=== PATIENT | female | born 1945 | race Caucasian/White ===

== ENCOUNTER 2021-07-19 13:14 | Inpatient (IN) | payer OTHER ==
[~2021-07-19] VITALS: Ht 157.5 cm; Wt 72.6 kg
--- NOTE | 2021-07-19 13:14 | NUR ---
BROUGHT IN BY [facility] AND TRIAGED. PLACED IN BED #3, REPORT GIVEN TO SHASHANK
[2021-07-19 13:15] VITALS: BP_SYST 141
--- NOTE | 2021-07-19 14:00 | NUR ---
PT AAOX4 FROM HOME BIBA C/O N/V/D X2 DAYS. PER PATIENT SHE HAS BEEN FEELING WEAK AND STIFF TO KNEES. PT STATED SHE HAS BLADDER CA AND HAS BEEN HAVING INCREASED HEMATURIA. HAS NOT STARTED CHEMO/RADIATION YET.
--- NOTE | 2021-07-19 14:49 | NUR ---
XRAYS BEING DONE AT BEDSIDE.
--- NOTE | 2021-07-19 16:25 | NUR ---
MD URBINA AT BEDSIDE TO DRAW LABS FROM FEMORAL VEIN.
[2021-07-19 16:54] LABS: BASOPHILS % (AUTO) 0.1 % (0.0-2.0); LYMPHOCYTES # (AUTO) 1.4 K/uL (1.0-5.5); MEAN CORPUSCULAR HEMOGLOBIN 30 pg (27-31); MEAN CORPUSCULAR HGB CONC 33 % (32-36); MEAN CORPUSCULAR VOLUME 89 fL (79.0-98.0); MONOCYTES # (AUTO) 0.8 K/uL (0.0-1.0); MONOCYTES % (AUTO) 5.5 % (1.7-9.3); NEUTROPHILS # (AUTO) 13.2 K/uL (1.8-7.7); NEUTROPHILS % (AUTO) 85.4 % (40.0-70.0); PLATELET COUNT (AUTO) 299 K/uL (130-430); RED CELL DISTRIBUTION WIDTH 14.5 % (9.0-15.0); WHITE BLOOD COUNT (AUTO) 15.5 K/uL (4.8-10.8)
[2021-07-19 16:58] LABS: ANION GAP 9 (5-15); CALCIUM 7.4 mg/dL (8.4-11.0); CHLORIDE 103 mmol/L (98-107); CREATININE 1.73 mg/dL (0.55-1.30); GLUCOSE 139 mg/dL (70-99); POTASSIUM 4.3 mmol/L (3.5-5.1); SODIUM SERUM 137 mmol/L (136-145); UREA NITROGEN, BLOOD 22 mg/dL (8-21)
[2021-07-19 17:00] LABS: PROTHROMBIN TIME 10.6 SECS (9.5-12.5)
[2021-07-19 17:03] LABS: ALANINE AMINOTRANSFERASE 14 U/L (12-78); ALBUMIN 2.8 g/dL (3.4-4.8); AMYLASE 32 U/L (0-100); ASPARTATE AMINOTRANSFERASE 18 U/L (10-37); LIPASE 64 U/L (73-393); RED BLOOD CELL COUNT(AUTO) 1.78 MIL/uL (4.2-6.2); TOTAL BILIRUBIN 0.3 mg/dL (0.0-1.0)
[2021-07-19 17:11] LABS: HEMOGLOBIN 5.3 g/dL (12.0-16.0)
[2021-07-19 17:12] LABS: HEMATOCRIT 15.9 % (36-48)
--- NOTE | 2021-07-19 17:36 | NUR ---
MD URBINA AT BEDSIDE TO INSERT 18G RIGHT IJ. GOOD BLOOD RETURN NOTED. FLUSHES WITHOUT DIFFICULTIES.
--- NOTE | 2021-07-19 18:24 | NUR ---
Admit bed requested Patient will be admitted to care of Dr. MOLINA. Admitted to MED SURG unit. Diagnosis HEMATURIA Inpatient (Yes or No) YES Observation (Yes or No) NO Orientation concerns or request close to nursing station (Yes or No) NO Covid Status NEGATIVE On vent or bipap NO Isolation requirements NO Needs a sitter NO From Home (Yes or if No enter name of facility) YES Requires Dialysis (Yes or No) NO Med Rec Completed (Yes of No) YES
[2021-07-19] MEDS ORDERED: ONDANSETRON HCL 4 MG/2 ML VIAL IVP PRN ×2 (18:30→21:45)
--- NOTE | 2021-07-19 18:35 | NUR ---
Medication reconciliation completed with information provided by PATIENT. PATIENT DENIES TAKING ANY MEDICATION AT HOME.
--- NOTE | 2021-07-19 18:36 | NUR ---
Patient's code status is FULL CODE paperwork completed and placed in chart.
--- NOTE | 2021-07-19 18:53 | NUR ---
Transfer to MED SURG via GURNEY . IV present no signs or symptoms of infiltration.
--- NOTE | 2021-07-19 20:30 | NUR ---
BT INITIATION: Consent signed per PT agreeing to administration of blood. Blood has been type and crossmatched. Blood sent from blood bank. Information on unit of blood checked against patient wristband at bedside by two nurses. All information matches. Patient or responsible republican informed of potential complications associated with blood transfusion. Informed of possible transfusion reaction symptoms. Aware of need to notify nurse at once of itching, shortness of breath, flushing, feeling of impending doom, or other symptoms not previously present. Vital signs taken within 5 minutes prior to initiation of transfusion. RN will remain with patient for first 15 minutes of transfusion at which time vital signs will be re-assessed.
[2021-07-19 20:55] VITALS: BP_SYST 145
--- NOTE | 2021-07-19 21:00 | NUR ---
Bill Yan visits at bedside.
[2021-07-19] MEDS ORDERED: METH-797 PO (21:15)
[2021-07-19] MEDS ORDERED: SYNTHROID (21:16)
[2021-07-19] MEDS ORDERED: LORazepam 2 MG/ML VIAL IVP PRN (21:45)
[2021-07-19] MEDS ORDERED: NORMAL SALINE 5 ML DISP.SYRIN IVF SCH (22:00)
--- NOTE | 2021-07-19 22:30 | NUR ---
Rounds/Pericare Pt assisted to bedpan and pt voided bloody urine. Pt c/o burning pain while urinating. Pericare and linens changed. Kept right jugular IV intact. Call light within reach. To monitor.
[2021-07-19] MEDS: METHADONE HCL 10 MG TABLET PO SCH (22:37)
[2021-07-19] MEDS: NORMAL SALINE 5 ML DISP.SYRIN IVF SCH (22:37)
--- NOTE | 2021-07-19 23:00 | NUR ---
1st unit Blood transfusion completed Pt AAO, VSS BP 149/69 HR 89 Temp 98.2. No blood transfusion reaction noted.
--- NOTE | 2021-07-19 23:09 | NUR ---
CONSULT: CONSULT CALLED FOR DR. STAPLES I SPOKE WITH CONSTANCE MATA REASON FOR CONSULT: ANEMIA/BLADDER CANCER REQUESTING CONSULT: DR. TRACY Canas WHIZZER OPERATOR PHONE NUMBER: [phone]
[2021-07-19 23:10] VITALS: BP_SYST 149
--- NOTE | 2021-07-19 23:20 | NUR ---
Ativan Pt awake and anxious, moaning c/o pain R. jugular IV. Flushes well with 10cc NS, no swelling or redness noted. Placed ice pack per pt request. Medicated pt with Ativan 1mg IVP as needed. Call light within reach. Bed low, locked, siderails up x3, alarm on. To monitor.
--- NOTE | 2021-07-20 01:30 | NUR ---
2nd unit Blood transfusion started. Pt awake, VSS.
--- NOTE | 2021-07-20 04:30 | NUR ---
Blood transfusion/Pagechang ALTAMIRANO At 0350 CRN noticed IV R. neck external jugular had hematoma. Pt c/o pain. Blood trans stopped at 0350. ICU and ER nurse attempted to restart new IV on right arm only but unsuccessful. No lab draw or IV start on L. arm due to pt's L. mastectomy. Pt refused any more IV starts. Approximately 50-80ml blood unable to infuse. Paged Dr. Pereyra. Awaiting callback.
--- NOTE | 2021-07-20 04:37 | NUR ---
Paged Dr. Pereyra Donta
--- NOTE | 2021-07-20 04:45 | NUR ---
central lab technician at bedside for lab draw.
--- NOTE | 2021-07-20 04:51 | NUR ---
I'LL INFORM MORNING US TO CALLED DR. REYEZ CONSULT THIS NUMBER GOES STRAIGHT TO HIS HOME AND HE DO NOT WANT TO BE CALL UNLESS IS STAT CONSULTATION
--- NOTE | 2021-07-20 05:42 | NUR ---
Second Paged for Donta Ng
--- NOTE | 2021-07-20 05:45 | NUR ---
Closing notes/spoke w/ Received callback from Dr. Pereyra and informed of 2nd unit Blood transfusion not completed due to failed IV on right jugular. Received order for PICC line. Pt has hemituria with one blood clot noted during the shift. Call light within reach. Bed low, locked, siderails up x3, alarm on. To endorse to AM nurse.
[2021-07-20] MEDS: NORMAL SALINE 5 ML DISP.SYRIN IVF SCH ×3 (06:00→23:16)
[2021-07-20 06:41] LABS: ANION GAP 11 (5-15); CALCIUM 7.8 mg/dL (8.4-11.0); CHLORIDE 103 mmol/L (98-107); CREATININE 1.94 mg/dL (0.55-1.30); GLUCOSE 133 mg/dL (70-99); POTASSIUM 4.1 mmol/L (3.5-5.1); SODIUM SERUM 136 mmol/L (136-145); UREA NITROGEN, BLOOD 27 mg/dL (8-21)
--- NOTE | 2021-07-20 07:30 | NUR ---
MORNING ROUNDS: PATIENT FAST ASLEEP DURING ROUNDS. IV RIGHT EXTERNAL IJ,REDNESS ON THE SITE,LOCK. O2 2L/NC,GOOD SATURATION. CALL LIGHT WITH IN REACH. BED LOCKED AT LOWEST POSITION. CONTINUE TO MONITOR FOR NAY ACTIVE BLEEDING.
--- NOTE | 2021-07-20 07:34 | NUR ---
CONSULTATION PAGED/CALLED Reason for Consultation: [] HEMATURIA Person Who was Notified: [] LEFT A VOICE MESSAGE INSTRUCTED Consulting Physician: [] DR Grace REYEZ Social Service Technician Specialty: [] UROLOGY Ordering Physician: [] DR MOLINA
[2021-07-20 08:02] VITALS: BP_SYST 118; BP_SYST 147
[2021-07-20] MEDS: METHADONE HCL 10 MG TABLET PO SCH (09:00)
[2021-07-20 09:44] LABS: BASOPHILS % (AUTO) 0.2 % (0.0-2.0); LYMPHOCYTES # (AUTO) 1.6 K/uL (1.0-5.5); MEAN CORPUSCULAR HEMOGLOBIN 31 pg (27-31); MEAN CORPUSCULAR HGB CONC 34 % (32-36); MEAN CORPUSCULAR VOLUME 91 fL (79.0-98.0); MONOCYTES # (AUTO) 1.6 K/uL (0.0-1.0); NEUTROPHILS # (AUTO) 14.3 K/uL (1.8-7.7); NEUTROPHILS % (AUTO) 81.8 % (40.0-70.0); PLATELET COUNT (AUTO) 252 K/uL (130-430); RED BLOOD CELL COUNT(AUTO) 2.13 MIL/uL (4.2-6.2); RED CELL DISTRIBUTION WIDTH 14.5 % (9.0-15.0); WHITE BLOOD COUNT (AUTO) 17.5 K/uL (4.8-10.8)
[2021-07-20] MEDS ORDERED: METHADONE HCL 10 MG TABLET PO ONE (09:45)
[2021-07-20 10:53] LABS: HEMATOCRIT 19.5 % (36-48); HEMOGLOBIN 6.5 g/dL (12.0-16.0)
--- NOTE | 2021-07-20 11:17 | NUR ---
ONCO/MICHAELA MD DR STAPLES ORDERED RECORDS FROM DR GRANT'S OFFICE RE: BLADDER CA. SPOKE TO DOROTHY WHO WILL FAX IT TO US.
--- NOTE | 2021-07-20 11:26 | NUR ---
UROLOGY CONSULT WITH DR REYEZ WAS CANCELLED. SPOKE TO YOHANA.
--- NOTE | 2021-07-20 11:27 | NUR ---
CONSULTATION PAGED/CALLED Reason for Consultation: [] ACUTE KIDNEY INJURY Person Who was Notified: [] DR SOLORZANO Consulting Physician: [] DR SOLORZANO Sheet Rock Nailer Specialty: [] NEPHRO Ordering Physician: [] DR MOLINA
--- NOTE | 2021-07-20 11:29 | NUR ---
UROLOGY CONSULT WAS CALLED TO THE OFFICE OF DR IGNACIO FRANCO. SPOKE TO DELIA WHO GAVE ME HIS PAGER NUMBER [phone].
--- NOTE | 2021-07-20 11:33 | NUR ---
CONSULTATION PAGED/CALLED Reason for Consultation: [] HEMATURIA Person Who was Notified: [] DELIA, PROVIDED THE PAGER # AND I PAGED Consulting Physician: [] DR IGNACIO FRANCO Flag Football Coach Specialty: [] UROLOGY Ordering Physician: [] DR MOLINA
--- NOTE | 2021-07-20 11:35 | NUR ---
CONSULTATION PAGED/CALLED Reason for Consultation: [] LEUKOCYTOSIS Person Who was Notified: [] VICTORIA Consulting Physician: [] DR ANGELY WHITESIDE Billboard Poster Specialty: [] ID Ordering Physician: [] DR MOLINA
[2021-07-20 11:38] VITALS: BP_SYST 134
[2021-07-20 11:54] LABS: PROTHROMBIN TIME 10.6 SECS (9.5-12.5)
--- NOTE | 2021-07-20 12:00 | NUR ---
CONSENT FOR PICC LINE PLACEMENT: PATIENT FINALLY AGREED TO HAVE A PICC LINE PLACEMENT AFTER TALKING TO DR Floresita MOLINA AND SON SIGNED THE CONSENT PER PATIENT.
--- NOTE | 2021-07-20 13:24 | NUR ---
MADE ANOTHER ATTEMPT TO REACH DR Itzel FRANCO, UROLOGIST. SPOKE TO [facility]. REPAGED DR FRANCO AGAIN.
--- NOTE | 2021-07-20 13:40 | NUR ---
URO CALLED BACK: SPOKE WITH DR FRANCO AND HE WILL SEE PATIENT LATER.
[2021-07-20 15:29] VITALS: BP_SYST 144
--- NOTE | 2021-07-20 15:56 | NUR ---
REFUSED JUÁREZ INSERTION: PATIENT REFUSED JUÁREZ INSERTION.
--- NOTE | 2021-07-20 19:00 | NUR ---
EVENING ROUNDS: BED CONTROL CALLED PICC LINE NURSE 2X WITH DIFFERENT [employer].WAITING FOR PICC LINE NURSE TO COME. CALL LIGHT WITH IN REACH. BED LOCKED AT LOWEST POSITION. RIGHT IJ LOCK.PER PATIENT PAIN AT THE SITE,NOT IN USED. CONTINUE TO MONITOR FOR ACTIVE BLEEDING.
[2021-07-20] MEDS ORDERED: LORazepam 1 MG TABLET PO ONE (19:45)
--- NOTE | 2021-07-20 19:45 | NUR ---
HIGH ALERT NOTE: Called Dr. Russell back at his identified within the medical roster to verify physician authenticity.
[2021-07-20 20:30] VITALS: BP_SYST 122
--- NOTE | 2021-07-20 20:30 | NUR ---
New midline placed to right upper arm, ok to use per PICC nurse.
[2021-07-20] MEDS: cefTRIAXone 1 GM IVPB PREMIX 50 ML IV SCH (23:16)
[2021-07-20] MEDS: D5/0.45 NS 1,000 ML IV SCH ×2 (23:16→23:23)
[2021-07-21 00:58] VITALS: BP_SYST 121
--- NOTE | 2021-07-21 02:15 | NUR ---
BT INITIATION: Consent signed per RN agreeing to administration of blood. Blood has been type and crossmatched. Blood sent from blood bank. Information on unit of blood checked against patient wristband at bedside by two nurses. All information matches. Patient or responsible alliance party informed of potential complications associated with blood transfusion. Informed of possible transfusion reaction symptoms. Aware of need to notify nurse at once of itching, shortness of breath, flushing, feeling of impending doom, or other symptoms not previously present. Vital signs taken within 15 minutes prior to initiation of transfusion. RN will remain with patient for first 15 minutes of transfusion at which time vital signs will be re-assessed.
[2021-07-21 02:23] LABS: BILIRUBIN,URINE NEGATIVE (NEGATIVE); BLOOD, URINE 3+ (NEGATIVE); CLARITY/URINE CLEAR (CLEAR); COLOR,URINE YELLOW (YELLOW); GLUCOSE,URINE NEGATIVE (NEGATIVE); KETONES,URINE NEGATIVE (NEGATIVE); LEUKOCYTE ESTERASE ,URINE 3+ (NEGATIVE); NITRITE, URINE POSITIVE (NEGATIVE); PROTEIN URINE 2+ (NEGATIVE); UROBILINOGEN,URINE 0.2 (0.2-1.0)
[2021-07-21 02:32] LABS: WBC,URINE >100 /HPF (0-3)
[2021-07-21 02:33] LABS: BACTERIA,URINE FEW /HPF (None Seen)
[2021-07-21] MEDS: NORMAL SALINE 5 ML DISP.SYRIN IVF SCH ×3 (05:50→21:30)
[2021-07-21] MEDS: D5/0.45 NS 1,000 ML IV SCH ×3 (05:50→23:35)
--- NOTE | 2021-07-21 07:15 | NUR ---
OPENING NOTE RECEIVED SBAR FROM NIGHT RN, PATIENT IN BED, RESPIRATIONS EVEN NON LABORED, BED IN LOW AND LOCKED POSITION, CALL LIGHT WITHIN REACH, BED ALARM ON
[2021-07-21 07:31] LABS: BASOPHILS % (AUTO) 0.2 % (0.0-2.0); EOSINOPHILS % (AUTO) 0.3 % (0.0-4.0); LYMPHOCYTES # (AUTO) 1.5 K/uL (1.0-5.5); LYMPHOCYTES % (AUTO) 14.7 % (20.5-51.5); MEAN CORPUSCULAR HEMOGLOBIN 32 pg (27-31); MEAN CORPUSCULAR HGB CONC 36 % (32-36); MEAN CORPUSCULAR VOLUME 90 fL (79.0-98.0); MONOCYTES # (AUTO) 0.9 K/uL (0.0-1.0); MONOCYTES % (AUTO) 9.2 % (1.7-9.3); NEUTROPHILS # (AUTO) 7.7 K/uL (1.8-7.7); NEUTROPHILS % (AUTO) 75.6 % (40.0-70.0); PLATELET COUNT (AUTO) 173 K/uL (130-430); RED BLOOD CELL COUNT(AUTO) 2.18 MIL/uL (4.2-6.2); RED CELL DISTRIBUTION WIDTH 14.1 % (9.0-15.0); RETICULOCYTE COUNT 6.1 % (0.5-1.5); WHITE BLOOD COUNT (AUTO) 10.2 K/uL (4.8-10.8)
[2021-07-21 07:53] LABS: TOTAL IRON BIND. CAPACITY 225 ug/dL (250-450)
--- NOTE | 2021-07-21 07:53 | NUR ---
Closing Patient AOx4, resting in bed, no sign of distress noted. Midline to right upper arm placed last night, patent with IV fluids infusing per order. 1 unit PRBCs given, no reaction noted, patient tolerated well. IV to right EJ removed, no signs of bleeding. Dr. Simons spoke with patient and son Yuriy. No bladder scanner available for post void residual, but patient had approx. 700mL yellow slightly cloudy urine output using bedpan. No blood or clots in urine noted. Sample for urinalysis sent to lab. Call light in reach, fall and safety precautions maintained.
[2021-07-21 07:54] LABS: ALANINE AMINOTRANSFERASE 17 U/L (12-78); ALBUMIN 2.3 g/dL (3.4-4.8); ANION GAP 7 (5-15); ASPARTATE AMINOTRANSFERASE 21 U/L (10-37); CHLORIDE 105 mmol/L (98-107); CREATININE 1.55 mg/dL (0.55-1.30); GLUCOSE 115 mg/dL (70-99); PHOSPHORUS 3.6 mg/dL (2.7-4.5); POTASSIUM 3.8 mmol/L (3.5-5.1); SODIUM SERUM 137 mmol/L (136-145); TOTAL BILIRUBIN 0.2 mg/dL (0.0-1.0); UREA NITROGEN, BLOOD 26 mg/dL (8-21)
[2021-07-21 08:00] VITALS: BP_SYST 144
[2021-07-21 08:15] LABS: HEMATOCRIT 19.6 % (36-48)
[2021-07-21 08:28] LABS: CALCIUM 6.8 mg/dL (8.4-11.0)
[2021-07-21] MEDS: METHADONE HCL 10 MG TABLET PO SCH ×2 (08:28→09:33)
--- NOTE | 2021-07-21 08:34 | NUR ---
methadone waste droppedm medication on the floor wasted with second RN witness
[2021-07-21] MEDS ORDERED: METHADONE HCL 10 MG TABLET PO ONE (08:45)
[2021-07-21] MEDS ORDERED: ceFAZolin SODIUM 1 GM in D5W 50 ML IV SCH (09:15)
--- NOTE | 2021-07-21 09:44 | NUR ---
critical lab informed Dr. Pereyra of Hemoglobin 7.0, Hematocrit 19.6 and calcium 6.8. Per do not transfuse unless Hemoglobin is 6.9 or below, new order received for calcium
[2021-07-21] MEDS: CALCIUM CARBONATE 500 MG/ TAB.CHEW PO SCH ×2 (10:00→21:28)
[2021-07-21] MEDS: cefTRIAXone 1 GM IVPB PREMIX 50 ML IV SCH (10:42)
[2021-07-21] MEDS ORDERED: CALCIUM CARBONATE 500 MG/ TAB.CHEW PO ONE (11:00)
[2021-07-21 12:53] VITALS: BP_SYST 122
[2021-07-21] MEDS ORDERED: CALCIUM GLUCONATE 2 GM in NS 100 ML IV ONE (13:00)
--- NOTE | 2021-07-21 13:52 | NUR ---
SCD APPLIED SCD TO BILAT LEGS, EDUCATED PATIENT REGARDING THE NEED FOR SCD, ANSWERED ALL QUESTIONS, PATIENT VERBALIZED UNDERSTANDING.
[2021-07-21 16:32] VITALS: BP_SYST 121
--- NOTE | 2021-07-21 17:54 | NUR ---
Dietitian Recommendations * Regular, gluten-free diet, Ensure Enlive BID (ONS yields 700 kcal/day, 40 gm protein/day) * Encourage increase PO intakes LP, RD Please refer to Nutrition Assessment for details. Addendum: 07/21/21 at [address] Amended: Links added.
--- NOTE | 2021-07-21 19:09 | NUR ---
CLOSING NOTE PROVIDED SBAR TO NIGHT RN, PATIENT IN BED RESPIRATIONS EVEN, NON LABORED, BED IN LOW AND LOCKED POSITION CALL LIGHT WITHIN REACH, BED ALARM ON, ENDORSED STOOL SAMPLE FOR OCCULT BLOOD. ENDORSED CARE TO NIGHT RN
[2021-07-21 20:00] VITALS: BP_SYST 150
[2021-07-22 00:40] VITALS: BP_SYST 134
[2021-07-22] MEDS: NORMAL SALINE 5 ML DISP.SYRIN IVF SCH ×3 (06:06→20:59)
--- NOTE | 2021-07-22 06:51 | NUR ---
Closing Patient AOx4, no sign of distress noted. O2 sat 95-98% on room air when NC slipped off, patient preferred to keep NC at bedside for comfort. No complaint of pain or nausea. Patient voiding well with bedpan. Urine yellow and slightly cloudy, no blood or clots noted. No bowel movement. IV fluids infusing as ordered. Repositioned with pillow when patient agreeable to it, otherwise patient was encouraged to turn in bed often. Patient able to turn from side to side in bed. Call light in reach, fall and safety precautions maintained.
[2021-07-22 07:26] LABS: MEAN CORPUSCULAR HEMOGLOBIN 31 pg (27-31); MEAN CORPUSCULAR HGB CONC 35 % (32-36); MEAN CORPUSCULAR VOLUME 91 fL (79.0-98.0); PLATELET COUNT (AUTO) 164 K/uL (130-430); RED BLOOD CELL COUNT(AUTO) 2.21 MIL/uL (4.2-6.2); RED CELL DISTRIBUTION WIDTH 14.5 % (9.0-15.0); WHITE BLOOD COUNT (AUTO) 8.4 K/uL (4.8-10.8)
--- NOTE | 2021-07-22 07:30 | NUR ---
RECEIVED PT FROM NOC SHIFT RN. PT IS AAOX4. NSR. RESP EVEN AND UNLABORED. O2 N/C AT 2LPM. NO COUGH OR SOB NOTED. ABDOMEN SOFT, NONTENDER, NONDISTENDED. BOWEL SOUNDS ACTIVE X4. PT CONTINENT BOWEL AND BLADDER. COLTON IV CATH MIDLINE PATENT, 3 LUMENS FLUSHED AND PATENT. SITE WNL. DRESSING CDI. PT DENIES PAIN. SKIN CDI, NO EDEMA, DISTAL PULSES NORMAL. CALL LIGHT WITHIN REACH. FALL PROTOCOL IN PLACE.
[2021-07-22 07:49] LABS: ALANINE AMINOTRANSFERASE 14 U/L (12-78); ALBUMIN 2.2 g/dL (3.4-4.8); ANION GAP 7 (5-15); ASPARTATE AMINOTRANSFERASE 24 U/L (10-37); C-REACTIVE PROTEIN QUANT 4.1 mg/dL (0-0.5); CALCIUM 7.2 mg/dL (8.4-11.0); CHLORIDE 106 mmol/L (98-107); CREATININE 1.45 mg/dL (0.55-1.30); GLUCOSE 111 mg/dL (70-99); PHOSPHORUS 3.5 mg/dL (2.7-4.5); POTASSIUM 3.8 mmol/L (3.5-5.1); SODIUM SERUM 137 mmol/L (136-145); TOTAL BILIRUBIN 0.3 mg/dL (0.0-1.0); UREA NITROGEN, BLOOD 20 mg/dL (8-21)
[2021-07-22 08:07] LABS: FOLATE (FOLIC ACID) 3.6 ng/mL (>3.0)
[2021-07-22 08:11] LABS: HEMATOCRIT 20.1 % (36-48); HEMOGLOBIN 6.9 g/dL (12.0-16.0)
--- NOTE | 2021-07-22 08:20 | NUR ---
PAGED DR. MOLINA TO REPORT CRITICAL HGB, AWAITING CALL BACK.
[2021-07-22 08:46] VITALS: BP_SYST 148
[2021-07-22 09:13] LABS: BAND % (MANUAL) 0 % (0-6); BASOPHILS % (MANUAL) 0 % (0-2); EOSINOPHILS % (MANUAL) 2 % (0-7); LYMPHOCYTES % (MANUAL) 15 % (20-46); METAMYELOCYTES % 1 % (0-0); MONOCYTES % (MANUAL) 7 % (0-11)
[2021-07-22 09:44] LABS: ERYTHROCYTE SEDIMENTATION RATE 23 MM/HR (0-20)
[2021-07-22] MEDS: CALCIUM CARBONATE 500 MG/ TAB.CHEW PO SCH ×2 (09:48→20:58)
[2021-07-22] MEDS: METHADONE HCL 10 MG TABLET PO SCH (09:49)
--- NOTE | 2021-07-22 10:05 | NUR ---
REPORTED TO DR. MOLINA THAT PT HGB 6.9, HCT 20.1, RECEIVED ORDER TO TRANSFUSE ONE UNIT PRBC. ORDER CARRIED OUT. PT MADE AWARE.
[2021-07-22] MEDS: D5/0.45 NS 1,000 ML IV SCH (10:17)
[2021-07-22] MEDS: cefTRIAXone 1 GM IVPB PREMIX 50 ML IV SCH (10:26)
[2021-07-22 11:33] VITALS: BP_SYST 152
[2021-07-22] MEDS ORDERED: CALCIUM GLUCONATE 2 GM in NS 100 ML IV ONE (13:00)
--- NOTE | 2021-07-22 13:30 | NUR ---
ONE UNIT PRBC INITIATED. PT EDUCATED TO REPORT S/S OF TRANSFUSION RX. PT VERBALIZED UNDERSTANDING.
[2021-07-22 15:39] VITALS: BP_SYST 129
--- NOTE | 2021-07-22 16:50 | NUR ---
ONE UNIT PRBC COMPLETED. VS WNL. PT DENIES S/S OF TRANSFUSION RX.
[2021-07-22] MEDS: SOD FERRIC GLUC COMPLEX/SUC 125 MG in NS 100 ML IV SCH (17:47)
--- NOTE | 2021-07-22 19:34 | NUR ---
ENDORSED ALL CARE TO MAREK MAHER. ALL QUESTIONS AND CONCERNS ADDRESSED.
[2021-07-22 20:00] VITALS: BP_SYST 134
[2021-07-22] MEDS: DOCUSATE SODIUM 100 MG CAPSULE PO SCH (20:59)
[2021-07-23 00:01] VITALS: BP_SYST 145
--- NOTE | 2021-07-23 04:39 | NUR ---
PT HAD A BOWEL MOVEMENT, I COLLECTED THE STOOL SAMPLE FOR OCCULT BLOOD AND TURNED IT INTO LAB.
[2021-07-23] MEDS: NORMAL SALINE 5 ML DISP.SYRIN IVF SCH ×3 (05:10→21:48)
[2021-07-23 07:27] LABS: BASOPHILS % (AUTO) 0.4 % (0.0-2.0); EOSINOPHILS # (AUTO) 0.3 K/uL (0.0-0.4); EOSINOPHILS % (AUTO) 3.8 % (0.0-4.0); HEMATOCRIT 24.8 % (36-48); HEMOGLOBIN 8.7 g/dL (12.0-16.0); LYMPHOCYTES # (AUTO) 1.2 K/uL (1.0-5.5); LYMPHOCYTES % (AUTO) 15.3 % (20.5-51.5); MEAN CORPUSCULAR HEMOGLOBIN 31 pg (27-31); MEAN CORPUSCULAR HGB CONC 35 % (32-36); MEAN CORPUSCULAR VOLUME 88 fL (79.0-98.0); MONOCYTES # (AUTO) 0.9 K/uL (0.0-1.0); MONOCYTES % (AUTO) 11.7 % (1.7-9.3); NEUTROPHILS # (AUTO) 5.5 K/uL (1.8-7.7); NEUTROPHILS % (AUTO) 68.8 % (40.0-70.0); PLATELET COUNT (AUTO) 187 K/uL (130-430); RED BLOOD CELL COUNT(AUTO) 2.81 MIL/uL (4.2-6.2); RED CELL DISTRIBUTION WIDTH 14.8 % (9.0-15.0); WHITE BLOOD COUNT (AUTO) 7.9 K/uL (4.8-10.8)
--- NOTE | 2021-07-23 07:41 | NUR ---
RECEIVED PT FROM MAREK MAHER. PT IS AAOX4. RESP E/U, SHALLOW BILATERALLY, ON R/A. NO COUGH OR SOB. PT IN NSR. ABDOMEN SOFT, ROUND, NONTENDER, NONDISTENDED. BOWEL SOUNDS ACTIVE X4. DENIES N/V/D/C. PT HAS C/O PERIODS OF BLADDER INCONTINENCE, NO HEMATURIA NOTED AT THIS TIME. DISTAL PULSES NORMAL, NO EDEMA, SKIN CDI. MIDLINE TO COLTON 2 LUMENS PATENT WITH D5 1/2 RUNNING AT 10OML/HOUR. SITE WNL, CDI. DENIES PAIN. CALL LIGHT WITHIN REACH.
[2021-07-23 07:59] LABS: ALANINE AMINOTRANSFERASE 14 U/L (12-78); ALBUMIN 2.2 g/dL (3.4-4.8); ANION GAP 6 (5-15); ASPARTATE AMINOTRANSFERASE 18 U/L (10-37); C-REACTIVE PROTEIN QUANT 2.8 mg/dL (0-0.5); CALCIUM 7.6 mg/dL (8.4-11.0); CHLORIDE 108 mmol/L (98-107); CREATININE 1.35 mg/dL (0.55-1.30); GLUCOSE 98 mg/dL (70-99); PHOSPHORUS 4.3 mg/dL (2.7-4.5); SODIUM SERUM 139 mmol/L (136-145); TOTAL BILIRUBIN 0.4 mg/dL (0.0-1.0); UREA NITROGEN, BLOOD 15 mg/dL (8-21)
[2021-07-23] MEDS: CALCIUM CARBONATE 500 MG/ TAB.CHEW PO SCH ×2 (08:16→21:47)
[2021-07-23] MEDS: DOCUSATE SODIUM 100 MG CAPSULE PO SCH ×2 (08:16→21:47)
[2021-07-23] MEDS: METHADONE HCL 10 MG TABLET PO SCH (08:16)
[2021-07-23] MEDS: D5/0.45 NS 1,000 ML IV SCH (08:16)
--- NOTE | 2021-07-23 08:30 | NUR ---
PT HAD LOOSE BM WITH INCONTINENCE OF BOWEL AND BLADDER. COLACE HELD. PT DENIES PAIN. NO HEMATURIA NOTED. CALL LIGHT WITHIN REACH.
[2021-07-23 08:31] VITALS: BP_SYST 133
[2021-07-23 10:15] LABS: ERYTHROCYTE SEDIMENTATION RATE 16 MM/HR (0-20)
[2021-07-23] MEDS: cefTRIAXone 1 GM IVPB PREMIX 50 ML IV SCH (11:20)
[2021-07-23 11:32] VITALS: BP_SYST 137
--- NOTE | 2021-07-23 12:00 | NUR ---
DR. MOLINA MET WITH AND ASSESSED PT. PT WILL STAY ONE MORE MIDNIGHT, LIKELY TO DISCHARGE TOMORROW. PT AGREED WITH POC.
--- NOTE | 2021-07-23 14:00 | NUR ---
PT RESTING COMFORTABLY IN BED. RESP E/U. PT TAUGHT TO TURN AND REPOSITION IN BED. PT DEMONSTRATED UNDERSTANDING. DENIES PAIN. CALL LIGHT WITHIN REACH.
[2021-07-23 15:36] VITALS: BP_SYST 144
[2021-07-23] MEDS: SOD FERRIC GLUC COMPLEX/SUC 125 MG in NS 100 ML IV SCH (16:51)
--- NOTE | 2021-07-23 16:51 | NUR ---
IV FERRICIT INITIATED. PT ASSISTED IN TURNING AND REPOSITIONING IN BED. DENIES PAIN. CALL LIGHT WITHIN REACH.
--- NOTE | 2021-07-23 19:56 | NUR ---
ENDORSED ALL CARE TO MAREK DEL ROSARIO. ALL QUESTIONS AND CONCERNS ADDRESSED.
[2021-07-24 00:42] VITALS: BP_SYST 148
[2021-07-24] MEDS: NORMAL SALINE 5 ML DISP.SYRIN IVF SCH ×3 (06:05→20:58)
[2021-07-24 08:00] VITALS: BP_SYST 177
[2021-07-24] MEDS: METHADONE HCL 10 MG TABLET PO SCH (08:40)
[2021-07-24] MEDS: CALCIUM CARBONATE 500 MG/ TAB.CHEW PO SCH ×2 (08:40→20:58)
[2021-07-24] MEDS: DOCUSATE SODIUM 100 MG CAPSULE PO SCH ×2 (08:40→20:58)
[2021-07-24] MEDS ORDERED: FERR-69 PO (08:43)
[2021-07-24 09:28] LABS: BASOPHILS % (AUTO) 0.3 % (0.0-2.0); EOSINOPHILS # (AUTO) 0.3 K/uL (0.0-0.4); EOSINOPHILS % (AUTO) 2.5 % (0.0-4.0); HEMATOCRIT 28.7 % (36-48); HEMOGLOBIN 9.7 g/dL (12.0-16.0); LYMPHOCYTES % (AUTO) 8.5 % (20.5-51.5); MEAN CORPUSCULAR HEMOGLOBIN 30 pg (27-31); MEAN CORPUSCULAR HGB CONC 34 % (32-36); MEAN CORPUSCULAR VOLUME 90 fL (79.0-98.0); MONOCYTES # (AUTO) 1.5 K/uL (0.0-1.0); MONOCYTES % (AUTO) 12.3 % (1.7-9.3); NEUTROPHILS % (AUTO) 76.4 % (40.0-70.0); PLATELET COUNT (AUTO) 164 K/uL (130-430); RED BLOOD CELL COUNT(AUTO) 3.21 MIL/uL (4.2-6.2); WHITE BLOOD COUNT (AUTO) 11.9 K/uL (4.8-10.8)
[2021-07-24 09:44] LABS: ALANINE AMINOTRANSFERASE 21 U/L (12-78); ALBUMIN 2.6 g/dL (3.4-4.8); ANION GAP 9 (5-15); ASPARTATE AMINOTRANSFERASE 26 U/L (10-37); CALCIUM 7.6 mg/dL (8.4-11.0); CHLORIDE 103 mmol/L (98-107); CREATININE 1.47 mg/dL (0.55-1.30); GLUCOSE 101 mg/dL (70-99); PHOSPHORUS 3.8 mg/dL (2.7-4.5); POTASSIUM 4.4 mmol/L (3.5-5.1); SODIUM SERUM 137 mmol/L (136-145); TOTAL BILIRUBIN 0.5 mg/dL (0.0-1.0); UREA NITROGEN, BLOOD 17 mg/dL (8-21)
[2021-07-24 10:28] LABS: ERYTHROCYTE SEDIMENTATION RATE 25 MM/HR (0-20)
[2021-07-24 11:30] VITALS: BP_SYST 166
[2021-07-24 16:25] VITALS: BP_SYST 139
--- NOTE | 2021-07-24 18:55 | NUR ---
PT'S MIDLINE INFILTRATED. IV MEDICATIONS ORDERED. DR. RAO PAGED. AWAITING CALL BACK.
--- NOTE | 2021-07-24 19:30 | NUR ---
OPENING NOTES: Patient received from AM shift. Patient is in bed resting no s/s of distress is noted at this time. Patient denies any pain or discomfort at this time. AM shift reported that patient MIDLINE had infiltrated. Dr. Atkins was here and placed gave order to insert new line for IV abx continuation post discharge. Order noted and will be carried out. Chest rise is even and unlabored on RA. Normal heart sounds on medsurg monitoring. Patient reports some generalized body ache 3/10, does note request anything for pain at this time. Denies ABD pain at this time with palpation Active BS x4 on auscultation. Will resume care and monitor throughout the shift.
[2021-07-24 20:00] VITALS: BP_SYST 134
--- NOTE | 2021-07-24 21:30 | NUR ---
PICC LINE NURSE was at bedside and patient refused the insertion of the new midline. Risk and benefits were explained to the patient, verbalized understanding and requested for PO medications instead and asked if the insertion could wait till AM shift. MD is aware of patient refusal for new line.
[2021-07-25 01:15] VITALS: BP_SYST 139
--- NOTE | 2021-07-25 06:18 | NUR ---
CLOSING NOTES: Patient is in bed resting no s/s of distress is noted at this time. Chest rise is even and unlabored. All current shift needs have been met at this time and patient is currently stable at this time. Safety protocols are in place and patient is able to verbalize needs with call light within reach. Will differ current care to AM shift for continuity of care.
[2021-07-25 06:50] LABS: BASOPHILS % (AUTO) 0.1 % (0.0-2.0); EOSINOPHILS # (AUTO) 0.1 K/uL (0.0-0.4); EOSINOPHILS % (AUTO) 0.5 % (0.0-4.0); HEMATOCRIT 26.1 % (36-48); LYMPHOCYTES # (AUTO) 1.1 K/uL (1.0-5.5); LYMPHOCYTES % (AUTO) 8.5 % (20.5-51.5); MEAN CORPUSCULAR HEMOGLOBIN 30 pg (27-31); MEAN CORPUSCULAR HGB CONC 35 % (32-36); MEAN CORPUSCULAR VOLUME 88 fL (79.0-98.0); MONOCYTES # (AUTO) 1.8 K/uL (0.0-1.0); MONOCYTES % (AUTO) 13.7 % (1.7-9.3); NEUTROPHILS % (AUTO) 77.2 % (40.0-70.0); PLATELET COUNT (AUTO) 220 K/uL (130-430); RED BLOOD CELL COUNT(AUTO) 2.98 MIL/uL (4.2-6.2); RED CELL DISTRIBUTION WIDTH 14.8 % (9.0-15.0)
[2021-07-25] MEDS ORDERED: SULF1TAB47 PO (07:13)
--- NOTE | 2021-07-25 08:00 | NUR ---
AM NOTES PT STABLE NOT IN ACUTE DISTRESS. VITALS STABLE. NOT IN ACUTE DISTRESS.PT REFUSED FOR MID LINE PLACEMENT .PT STATED IF I HAVE IV I WILL NOT BE ABLE TO GO HOME. I WANTED TO GO HOME. VITALS STABLE NOT IN ACUTE DISTRESS. KEPT COMFORTABLE.
[2021-07-25 08:07] VITALS: BP_SYST 145
[2021-07-25] MEDS: DOCUSATE SODIUM 100 MG CAPSULE PO SCH (08:50)
[2021-07-25] MEDS: CALCIUM CARBONATE 500 MG/ TAB.CHEW PO SCH (08:50)
[2021-07-25] MEDS: METHADONE HCL 10 MG TABLET PO SCH (08:50)
--- NOTE | 2021-07-25 11:30 | NUR ---
MD CALLED CALLED DR RAO AND NOTIFIED THAT PT REFUSING FOR MIDLINE PLACEMENT AND PT WANTED TO GO HOME. NEW ORDER RECEIVED FO DISCHARGE
[2021-07-25 11:57] VITALS: BP_SYST 141
[2021-07-25] MEDS: NORMAL SALINE 5 ML DISP.SYRIN IVF SCH (14:00)
[2021-07-25] MEDS ORDERED: cephALEXin 250 MG CAPSULE PO SCH ×2 (14:00→15:00)
--- NOTE | 2021-07-25 16:00 | NUR ---
rounds pt stable notin acute distress. waiting for son to come to pick her up
[2021-07-25 16:10] VITALS: BP_SYST 142
--- NOTE | 2021-07-25 16:21 | NUR ---
Discharge appointments and vendors arranged by Rosalio Plaster Caster. Dr. Hernadez Primary [facility] Per Dr. Hernadez office patient will need to make own appointment Dr. Darby Ivory Polisher [employer] will call with date and time Contracted urologist Rosalio will call with date and time [phone] auth# [id number] Home PT & safety eval Agency will call and schedule visit. Please call Patient Support Center [phone] for worsening symptoms or trouble getting your medicine. For care needs when provider office is closed, contact [facility] at [phone] or Kevin [facility] [phone].
--- NOTE | 2021-07-25 16:25 | NUR ---
Logo Discharge Summary - Care Management Last Saved By: Elvi Fitzpatrick Last Saved On: 07/25/2021 4:24 PM (PT) Created By: Elvi Fitzpatrick Created On: 07/25/2021 1:08 PM (PT) Patient Information Patient Name: GEORGIA JONES [address]: [address] [place] [address] [place] [address] SSN: : 1945 (age 76 years) Work Phone: [phone] Gender: Female Alternative Phone: Marital Status: Single Race: WHITE- Race 2: Ethnicity: Not or or Sami Origin Ethnicity 2: Discharge Summary Final Discharge Diagnosis: generalized weakness, NITO, leukocytosis, Hx breast/bladder ca, left hydronephrosis Discharging Hospitalist Kerrie menchaca Date Patient was Discharged/ - Note: Please remember to Save/Sign/Lock your LACE Assessment before entering the Discharge Date in [employer] 07/25/2021 12:00 AM (PT) Did the Patient ? Answers: No Discharge Disposition Answers: Home with HH Name of facility or service patient will be discharged to: andrade year Patient/family notified of the Discharge Plan? Answers: Yes Check YES if the patient is Discharging to SNF, LTAC, Nursing Home, Sub-Acute, Acute or Hospice (it will maki out the rest of the assessment). Answers: No Patient agrees that within a week from discharge they (or best contact) may receive a voice message with PHI. Answers: Yes (Add phone number in text box that a voice message with PHI can be left on) Notes: [place] Are there any dates/times that the patient cannot make an appointment? Answers: No Is it okay to leave a voice message with the patient or best contact center director regarding their PDV if they are unable to be reached? (patient is approving this one time voice message) Answers: Yes (confirm name and phone number) Notes: [place] PDV is scheduled with one of the following : If patient ACTIVE in [facility] Program, [facility] completes the PDV.(Exception: R6). Answers: PCP PDV requested through [facility]. PDV details not received prior to discharge. [facility] to schedule and contact patient. (document the date and time you entered the request in the note box) Notes: 07/25 Additional Discharge Information? follow up with railroader Dr. Darby follow up with Urologist established/PPL provider keep oncology appt Signature Signature: Signature Date Signed: 07/25/2021 4:24 PM (PT) Signed By: Elvi Fitzpatrick Position: Inpatient Research Scientist Pager Number: Allscripts Generated (Scan) Page 1 of Copyright 2021 flatev. [Production([id number])]
[2021-07-25] MEDS: SOD FERRIC GLUC COMPLEX/SUC 125 MG in NS 100 ML IV SCH (17:00)
[2021-07-25 17:10] VITALS: BP_SYST 141
--- NOTE | 2021-07-25 19:00 | NUR ---
D/C Patient Patient given medication reconciliation form and D/C instructions. Exit Care provided. Patient verbalized understanding. MD discussed with patient the results and treatment provided. Ambulatory with steady gait for discharge to home. Patient in stable condition, ID band removed. Patient educated on pain management. All belongings sent with patient.pt left home with son chilo in stable condition.
== END 2021-07-25 19:05 | disposition home health service (06) | DRG 689 ==
LOC: SED 13:14 → SMU 18:37 → STU 21:03 → SMU 07-23 18:48
PROVIDERS: ADMIT Preventive Medicine Preventive Medicine/Occupational Environmental Medicine; ATTEND General Practice
PROC: 30233N1 Transfusion of Nonautologous Red Blood Cells into Peripheral Vein, Percutaneous Approach (ICD-10-PCS; principal; 2021-07-20)
DX: N13.6 Pyonephrosis (principal); E43 Unspecified severe protein-calorie malnutrition; L03.113 Cellulitis of right upper limb; T82.7XXA Infection and inflammatory reaction due to other cardiac and vascular devices, implants and grafts, initial encounter; N17.0 Acute kidney failure with tubular necrosis; E83.52 Hypercalcemia; D50.0 Iron deficiency anemia secondary to blood loss (chronic); C67.9 Malignant neoplasm of bladder, unspecified; M79.7 Fibromyalgia; M19.90 Unspecified osteoarthritis, unspecified site; Z20.822 Contact with and (suspected) exposure to COVID-19; E88.09 Other disorders of plasma-protein metabolism, not elsewhere classified; C50.919 Malignant neoplasm of unspecified site of unspecified female breast; E03.9 Hypothyroidism, unspecified; Z88.6 Allergy status to analgesic agent; Z88.8 Allergy status to other drugs, medicaments and biological substances; Z79.899 Other long term (current) drug therapy; Z85.3 Personal history of malignant neoplasm of breast; Z85.51 Personal history of malignant neoplasm of bladder; Z68.29 Body mass index [BMI] 29.0-29.9, adult
CPT/HCPCS: 36415; 36430; 71045; 76376; 76770; 80048; 80053; 81000; 82150; 82272; 82607; 82728; 82746; 83540; 83550; 83605; 83690; 83735; 84100; 85007; 85025; 85027; 85044; 85610-TC; 85651-TC; 85730-TC; 86140; 86886; 86900; 86901; 86920; 87040; 87086; 99285; G0378; J0610; J0696; J2060; J2916; P9021